=== PATIENT | female | born 1960 | race Caucasian/White ===

== ENCOUNTER 2023-01-21 08:36 | Day surgery (SDC) | payer OTHER | END 2023-01-21 11:25 | disposition home or self-care (01) | LOC: FASU-ENDO 08:36 | PROVIDERS: ATTEND Internal Medicine Gastroenterology | PROC: 0DJD8ZZ Inspection of Lower Intestinal Tract, Via Natural or Artificial Opening Endoscopic (ICD-10-PCS; principal; 2023-01-21 10:06) | DX: K92.1 Melena (principal); K64.2 Third degree hemorrhoids; K57.30 Diverticulosis of large intestine without perforation or abscess without bleeding; K63.89 Other specified diseases of intestine | CPT/HCPCS: 82962 ==